=== PATIENT | female | born 1970 | race Caucasian/White ===

== ENCOUNTER 2020-05-01 20:14 | Emergency (ER) | payer OTHER ==
[2020-05-01 20:28] VITALS: Ht 165.1 cm
[2020-05-01 23:38] VITALS: BP 129/83
== END 2020-05-01 23:30 | disposition home or self-care (01) ==
LOC: ED 20:14
DX: S32.029A Unspecified fracture of second lumbar vertebra, initial encounter for closed fracture (principal); S33.9XXA Sprain of unspecified parts of lumbar spine and pelvis, initial encounter; W17.89XA Other fall from one level to another, initial encounter; Y93.89 Activity, other specified; Y92.89 Other specified places as the place of occurrence of the external cause; Y99.8 Other external cause status
CPT/HCPCS: J1885